=== PATIENT | male | born 1995 | race Caucasian/White ===

== ENCOUNTER 2017-09-25 13:34 | Emergency (ER) | payer OTHER ==
[2017-09-25 15:10] VITALS: BP 139/67; PULSE 60; RESP 18; TEMP 92.9; O2SAT 100
--- NOTE | 2017-09-25 16:32 | PD ---
HPI Chief Complaint: Psychiatric Symptoms Time Seen by Provider: 15:10 Travel History International Travel<30 days: No Contact w/Intl Traveler<30days: No Traveled to known affect area: No History of Present Illness HPI 21 year-old male with history of hyperparathyroidism and autism presents to the emergency room under a Knowles act initiated by police department after patient made suicidal statements to his mother. Patient states he and his mother were fighting and he may have mentioned something that sounded suicidal to her. He denies suicidal or homicidal ideation at this time. States he just wants to see his girlfriend. He admits to smoking marijuana daily. Denies any other illicit drug use. Denies alcohol use. He smokes cigarettes daily. States he has had a nonproductive cough for the past few days. Multiple sick contacts. He is not prescribed medication for anything. PFSH Past Medical History Anxiety: Yes Depression: Yes Diminished Hearing: No Psychiatric: Yes (PTSD, BORDERLINE PERSONALITY D/O) Immunizations Current: Yes Social History Alcohol Use: No Tobacco Use: No Substance Use: No Allergies-Medications (Allergen,Severity, Reaction): Uncoded Allergies: NKA (Allergy, 01/23/12) Reported Meds & Prescriptions Reported Meds & Active Scripts Active No Active Prescriptions or Reported Medications Review of Systems Except as stated in HPI: all other systems reviewed are Neg Physical Exam Narrative GENERAL: Well-nourished, well-developed male in no acute distress. Afebrile. Ambulatory. SKIN: Focused skin assessment warm/dry. HEAD: Normocephalic. EYES: No scleral icterus. No injection or drainage. NECK: Supple, trachea midline. No JVD or lymphadenopathy. CARDIOVASCULAR: Regular rate and rhythm without murmurs, gallops, or rubs. RESPIRATORY: Breath sounds equal bilaterally. No accessory muscle use. Coarse lung sounds bilaterally. PSYCHIATRIC: No delusional thought processes. No hallucinations. Normal affect. Data Data Last Documented VS Vital Signs Date Time Temp Pulse Resp B/P (MAP) Pulse Ox O2 Delivery O2 Flow Rate FiO2 09/26/17 06:30 Room Air 09/26/17 02:17 18 09/25/17 18:18 80 100 09/25/17 15:10 92.9 Orders Orders Complete Blood Count With Diff (09/25/17 15:46) Comprehensive Metabolic Panel (09/25/17 15:46) Psych Screen (09/25/17 15:46) Drug Screen, Random Urine (09/25/17 15:46) Alcohol (Ethanol) (09/25/17 15:46) Chest, Pa & Lat (09/25/17 ) Diet Regular Basic (09/25/17 Dinner) Urinalysis - C+S If Indicated (09/25/17 17:58) Albuterol Concentrated Neb (Albuterol Co (09/25/17 19:00) Sodium Polysty Sulfate Liq (Kayexalate L (09/25/17 19:00) Thyroid Stimulating Hormone (09/25/17 18:00) Diet Regular Basic (09/26/17 Breakfast) Diet Regular Basic (09/26/17 Lunch) Ed Discharge Order (09/26/17 15:06) Labs Laboratory Tests Test 09/25/17 17:25 09/25/17 18:00 Urine Color YELLOW Urine Turbidity CLEAR Urine pH 6.0 Urine Specific [place] 1.019 Urine Protein NEG mg/dL Urine Glucose (UA) NEG mg/dL Urine Ketones 150 mg/dL Urine Occult Blood NEG Urine Nitrite NEG Urine Bilirubin NEG Urine Urobilinogen LESS THAN 2.0 MG/DL Urine Leukocyte Esterase NEG Urine WBC 1 /hpf Urine Mucus FEW /lpf Microscopic Urinalysis Comment CULT NOT INDICATED Urine Opiates Screen NEG Urine Barbiturates Screen NEG Urine Amphetamines Screen NEG Urine Benzodiazepines Screen NEG Urine Cocaine Screen NEG Urine Cannabinoids Screen POS White Blood Count 14.8 TH/MM3 Red Blood Count 5.94 MIL/MM3 Hemoglobin 16.2 GM/DL Hematocrit 49.4 % Mean Corpuscular Volume 83.1 FL Mean Corpuscular Hemoglobin 27.3 PG Mean Corpuscular Hemoglobin Concent 32.8 % Red Cell Distribution Width 14.8 % Platelet Count 315 TH/MM3 Mean Platelet Volume 8.5 FL Neutrophils (%) (Auto) 65.2 % Lymphocytes (%) (Auto) 26.9 % Monocytes (%) (Auto) 7.4 % Eosinophils (%) (Auto) 0.2 % Basophils (%) (Auto) 0.3 % Neutrophils # (Auto) 9.7 TH/MM3 Lymphocytes # (Auto) 4.0 TH/MM3 Monocytes # (Auto) 1.1 TH/MM3 Eosinophils # (Auto) 0.0 TH/MM3 Basophils # (Auto) 0.0 TH/MM3 CBC Comment AUTO DIFF Differential Comment AUTO DIFF CONFIRMED Blood Urea Nitrogen 9 MG/DL Creatinine 0.93 MG/DL Random Glucose 71 MG/DL Total Protein 8.6 GM/DL Albumin 4.0 GM/DL Calcium Level 11.2 MG/DL Alkaline Phosphatase 93 U/L Aspartate Amino Transf (AST/SGOT) 54 U/L Alanine Aminotransferase (ALT/SGPT) 46 U/L Total Bilirubin 0.8 MG/DL Sodium Level 135 MEQ/L Potassium Level 5.6 MEQ/L Chloride Level 107 MEQ/L Carbon Dioxide Level 19.6 MEQ/L Anion Gap 8 MEQ/L Estimat Glomerular Filtration Rate 101 ML/MIN Thyroid Stimulating Hormone 3rd Gen 1.400 uIU/ML Ethyl Alcohol Level LESS THAN 3 MG/DL MDM Medical Decision Making Medical Screen Exam Complete: Yes Emergency Medical Condition: Yes Medical Record Reviewed: Yes Differential Diagnosis Bipolar disorder, schizophrenia, suicidal ideation, adjustment disorder Narrative Course 21-year-old male presents to the emergency room under Knowles act for evaluation of suicidal statements. Patient denies suicidal or homicidal ideation at this time. States he just wants to go home and see his girlfriend. Physical exam reveals coarse lung sounds bilaterally. Patient is a smoker but reports cough over the past several days. He is afebrile and well-appearing in the emergency room. Vital signs stable. Normal affect. Chest x-ray is negative. CBC shows mild leukocytosis without left shift. CMP is remarkable for potassium of 5.6. UA is unremarkable. Alcohol is negative. Patient was given nebulized albuterol for both hyperkalemia and bronchitis. He was also given Kayexalate. He is medically cleared for psychiatric evaluation. 09/26/2017 1509: Patient was seen by psychiatrist and Knowles act was lifted. He has not felt to be a threat to himself or others at this time. He is stable for outpatient follow-up. Diagnosis Primary Impression: Adjustment disorder Qualified Codes: F43.20 - Adjustment disorder, unspecified Referrals: Psychiatrist Additional Instructions: Follow-up per psychiatrist's recommendations. Return to the emergency room for worsening symptoms. Scripts No Active Prescriptions or Reported Meds Disposition: 01 DISCHARGE HOME Condition: Stable Donna Rojo Sep 25, 2017 16:32
[2017-09-25 18:18] VITALS: BP 147/81; PULSE 80; RESP 18; O2SAT 100
[2017-09-25 18:34] LABS: AUTOMATED NEUTROPHIL # 9.7 TH/MM3 (1.8-7.7); BASOPHIL % 0.3 % (0.0-2.0); EOSINOPHIL % 0.2 % (0.0-4.0); HEMATOCRIT 49.4 % (39.0-51.0); HEMOGLOBIN 16.2 GM/DL (13.0-17.0); LYMPH % 26.9 % (9.0-44.0); MEAN CELL VOLUME 83.1 FL (80.0-100.0); MEAN CORPUSCULAR HEMOGLOBIN 27.3 PG (27.0-34.0); MEAN CORPUSCULAR HGB CONC 32.8 % (32.0-36.0); MEAN PLATELET VOLUME 8.5 FL (7.0-11.0); MONO % 7.4 % (0.0-8.0); MONOCYTE # 1.1 TH/MM3 (0-0.9); NEUT % 65.2 % (16.0-70.0); PLATELET COUNT 315 TH/MM3 (150-450); RED BLOOD COUNT 5.94 MIL/MM3 (4.50-5.90); RED CELL DISTRIBUTION WIDTH 14.8 % (11.6-17.2); WHITE BLOOD COUNT 14.8 TH/MM3 (4.0-11.0)
[2017-09-25 18:37] LABS: BILIRUBIN, URINE NEG (NEG); BLOOD, URINE NEG (NEG); GLUCOSE,URINE NEG (NEG); KETONE, URINE 150 mg/dL (NEG); MUCUS URINE FEW /lpf (OCC); NITRITE,URINE NEG (NEG); URINE COLOR YELLOW (YELLW/STRAW); URINE LEUKOCYTE ESTERASE NEG (NEG)
--- NOTE | 2017-09-25 18:41 | RADRPT ---
EXAM DATE/TIME: 09/25/2017 18:32 [facility] COMPARISON: No previous studies available for comparison. INDICATIONS : Cough and chest pain. MEDICAL HISTORY : None. SURGICAL HISTORY : None. ENCOUNTER: Initial ACUITY: 1 day PAIN SCORE: 6/10 LOCATION: Bilateral chest FINDINGS: PA and lateral views of the chest demonstrate the lungs to be symmetrically aerated without evidence of mass, infiltrate or effusion. The cardiomediastinal contours are unremarkable. Osseous structure s are intact. CONCLUSION: Normal 2 view chest x-ray. Gerard Copleand MD on September 25, 2017 at 18:39 Board Certified Radiologist. This report was verified electronically.
[2017-09-25 18:44] LABS: ALT (GPT) 46 U/L (12-78); AST (GOT) 54 U/L (15-37); BICARBONATE 19.6 MEQ/L (21.0-32.0); BLOOD UREA NITROGEN 9 MG/DL (7-18); CALCIUM 11.2 MG/DL (8.5-10.1); CHLORIDE 107 MEQ/L (98-107); CREATININE 0.93 MG/DL (0.60-1.30); GLOMERULAR FILTRATION RATE 101 ML/MIN (>89); GLUCOSE,RANDOM 71 MG/DL (74-106); SODIUM (NA) 135 MEQ/L (136-145)
[2017-09-25 18:46] LABS: ALKALINE PHOSPHATASE 93 U/L (45-117); TOTAL BILIRUBIN ADULT 0.8 MG/DL (0.2-1.0); TOTAL PROTEIN 8.6 GM/DL (6.4-8.2)
[2017-09-25] MEDS ORDERED: RESP: ALBUTEROL CONC 2.5 MG/0.5 ML NEB INH ONE (19:00)
[2017-09-25] MEDS ORDERED: SODIUM POLYSTYRENE SULFONATE SUSP 15 GM/60 ML CUP PO ONE (19:00)
[2017-09-26 02:17] VITALS: RESP 18
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
== END 2017-09-26 16:24 | disposition home or self-care (01) ==
LOC: NEPJ 13:34
DX: F43.20 Adjustment disorder, unspecified (principal); D72.829 Elevated white blood cell count, unspecified; E87.5 Hyperkalemia; J40 Bronchitis, not specified as acute or chronic; F41.9 Anxiety disorder, unspecified; F43.10 Post-traumatic stress disorder, unspecified; F60.3 Borderline personality disorder; E21.3 Hyperparathyroidism, unspecified; F84.0 Autistic disorder
CPT/HCPCS: 71046; 80053; 80307; 81001; 84443; 85025; 99284